=== PATIENT | male | born 1955 | race Caucasian/White ===

== ENCOUNTER 2019-10-05 22:52 | Emergency (ER) | payer SELFPAY ==
[~2019-10-05] VITALS: Ht 182.9 cm; Wt 106.9 kg
[2019-10-05] MEDS ORDERED: EPINEPHrine 1:10,000 [1 MG/10 ML] SYRINGE IVP ONE (22:53)
[2019-10-05] MEDS ORDERED: SODIUM BICARBONATE [ADULT] 8.4% 50 MEQ/50 ML SYRINGE IVP ONE (22:53)
[2019-10-05] MEDS ORDERED: ETOMIDATE 2 MG/ML 10 ML VIAL IV ONE (22:53)
[2019-10-05] MEDS ORDERED: DEXTROSE 50%-WATER 25 GM/50 ML SYRINGE IVP ONE (22:53)
[2019-10-05 22:55] VITALS: BP 0/0
== END 2019-10-06 02:30 | disposition expired ==
LOC: EDBD 22:52 → EMS 22:52
DX: I46.9 Cardiac arrest, cause unspecified (principal)
CPT/HCPCS: 92950; 99285; J0171; J3490